=== PATIENT | male | born 1975 | race African-American/Black ===

== ENCOUNTER 2016-12-18 12:23 | Emergency (ER) | payer OTHER ==
--- NOTE | ~2016-12-18 | CR150 ---
[facility] A Service of [facility] RADIOLOGY TEXT RESULTS PATIENT: PRADIP RODRIGUEZ LOCATION: [facility] : [birth year] UNIT #: [id number] AGE: [address]: Braulio Rasmussen MD SEX: M ORDER DR: [id number] [facility] [address] [place], [place] [address] [id number] E MR#: [id number] Acc #: [id number] NAME: PRADIP RODRIGUEZ : 1975 SEX: M STUDY DATE/TIME: 12/18/2016 11:42 UNIT: DMITRIY ROOM: STUDY DESCRIPTION: CR Hip Min 2 Views Lt Attending Physician: Braulio Rasmussen M.D. Ordering Physician: Ed Doc Joselin Hanley Primary Care Physician: No Primary Care Physician MEDICAL IMAGING REPORT This report is preliminary unless electronic signature is present EXAM Left hip, 2 views, 12/18/2016, 1142 hours. CLINICAL HISTORY 41-year-old man with complaint of 1-day history of low back pain and left hip pain. Patient was helping a friend lift an automobile transmission when he heard a pop in his hip. COMPARISON None. FINDINGS AP pelvis, AP and frog lateral views of the left hip were performed. The overall bone density is normal. There is no acute fracture or dislocation. No degenerative change at the hip or sacroiliac joints. Bilateral phleboliths are present. IMPRESSION No pelvic or hip fracture seen. Dictated by... Camryn Ortiz M.D. THIS IS AN ELECTRONICALLY VERIFIED REPORT Camryn Ortiz M.D. at 12/18/2016 2:29 PM SHERIE/marianela TD: 12/18/2016 12:53 JOB #: [id number] [facility] A Service [facility] RADIOLOGY TEXT RESULTS PATIENT: PRADIP RODRIGUEZ LOCATION: [facility] : 77 UNIT #: [id number] AGE: [address]: Braulio Rasmussen MD SEX: M ORDER DR: MEDICAL IMAGING REPORT Page 1 of 1 COPY
--- NOTE | ~2016-12-18 | CR181 ---
[facility] A Service of [facility] RADIOLOGY TEXT RESULTS PATIENT: PRADIP RODRIGUEZ LOCATION: [facility] : [birth year] UNIT #: [id number] AGE: [address]: Braulio Rasmussen MD SEX: M ORDER DR: [id number] [facility] [address] [place], [place] [address] [id number] E MR#: [id number] Acc #: [id number] NAME: PRADIP RODRIGUEZ. : 1975 SEX: M STUDY DATE/TIME: 12/18/2016 UNIT: [facility] ROOM: STUDY DESCRIPTION: CR Lumbar Spine 2 or 3 Views Attending Physician: Braulio Rasmussen M.D. Ordering Physician: Braulio Rasmussen M.D. Primary Care Physician: No Primary Care Physician MEDICAL IMAGING REPORT This report is preliminary unless electronic signature is present EXAM Lumbar spine series 12/18/2016, 11:42 hours HISTORY 1-day history of low back pain and left hip pain. Patient heard a pop with acute onset of pain when lifting an automobile transmission yesterday. FINDINGS AP and lateral views of the lumbar spine and a cone lateral view of the lumbosacral junction were performed. There are 5 non-rib bearing lumbar type vertebrae which are normally aligned. There are 12 large sets of ribs bilaterally on chest film 06/06/2010. Vertebral body and disc heights are normal. There is mild facet arthropathy at the lower lumbar levels. There is a few millimeters of retrolisthesis of L5 on S1 likely chronic. IMPRESSION No compression fracture. There is mild (2 mm) retrolisthesis of L5 on S1 felt likely chronic. Sacrum and sacroiliac joints appear normal. Dictated by... Camryn Ortiz M.D. THIS IS AN ELECTRONICALLY VERIFIED REPORT Camryn Ortiz M.D. at 12/18/2016 2:29 PM Shanae TD: 12/18/2016 12:47 JOB #: [id number] MEDICAL IMAGING REPORT [facility] A Service of [facility] & [facility] RADIOLOGY TEXT RESULTS PATIENT: PRADIP RODRIGUEZ LOCATION: [facility] : 77 UNIT #: [id number] AGE: [address]: Braulio Rasmussen MD SEX: M ORDER DR: Page 1 of 1 COPY
[2016-12-18 11:46] LABS: BASOPHIL# 0.1 X10e3 (0-0.3); BASOPHIL% 0.4 % (0-2.5); EOSINOPHIL# 0.1 X10e3 (0-0.7); EOSINOPHIL% 0.8 % (0.0-7.0); HEMATOCRIT 49.7 % (38.0-50.0); HEMOGLOBIN 16.2 gm/dL (13.0-16.0); LYMPHOCYTE# 2.2 X10e3 (1.0-3.5); MEAN CELL VOLUME 87.4 FL (83-96); MEAN CORPUSCULAR HEMOGLOBIN 28.6 PG (28-34); MEAN CORPUSCULAR HGB CONC 32.7 g/dL (30-36); MEAN PLATELET VOLUME 8.6 FL (6.5-11.5); MONOCYTE# 1.3 X10e3 (0-1.0); MONOCYTE% 11.3 % (3.0-12.0); NEUTROPHIL# 7.9 X10e3 (1.5-7.1); NEUTROPHIL% 68.5 % (40-75); PLATELET COUNT 248 X10e3 (140-420); RED BLOOD COUNT 5.68 X10e (3.90-5.60); RED CELL DISTRIBUTION WIDTH 14.2 % (11.0-15.5); WHITE BLOOD COUNT 11.6 X10e3 (4.0-10.5)
[2016-12-18 11:48] LABS: DIFF IND NO
[2016-12-18 12:10] LABS: BUN/CREATININE RATIO 11.11; CALCIUM SERUM 9.1 mg/dL (8.4-10.2); CREATININE SERUM 0.9 mg/dL (0.6-1.4); GLOM FILT RATE Estimated 123.4 mL/min (>60); POTASSIUM 3.7 mmol/L (3.5-5.1)
[~2016-12-18 12:23] MED LIST: A/T/S 2% GEL30 GM OP; PHENERGAN PO
== END 2016-12-18 12:50 | disposition home or self-care (01) ==
LOC: CED 12:23
PROVIDERS: Emergency Medicine
DX: M54.42 Lumbago with sciatica, left side (principal)
CPT/HCPCS: 72100; 73502; 80048; 85025; 99284